=== PATIENT | female | born 1970 | race Caucasian/White ===

== ENCOUNTER → 2016-05-26 | Outpatient (CLI) | payer OTHER ==
[~2016-05-26] MED LIST: ABILIFY10 MG PO; CELEXA PO; DURAGESIC25 MCG EXT; FENTANYL1 EAC1 TD; SAVELLA50 MG PO
--- NOTE | ~2016-05-26 | CT2 ---
[facility] A Service of [facility] RADIOLOGY TEXT RESULTS PATIENT: SARAH ATKINSON LOCATION: [facility] : 66 UNIT #: [id number] AGE: [address]: Derrek Baeza MD SEX: F ORDER DR: [id number] [facility] [address] [place], [place] [address] [id number] O MR#: [id number] Acc #: [id number] NAME: SARAH ATKINSON : 1970 SEX: F STUDY DATE/TIME: 05/26/2016 12:35 UNIT: [facility] ROOM: STUDY DESCRIPTION: CT Abd and Pelv W Cont Attending Physician: Derrek Baeza M.D. Referring Physician: Derrek Baeza M.D. Ordering Physician: Derrek Baeza M.D. Primary Care Physician: No Primary Care Physician MEDICAL IMAGING REPORT This report is preliminary unless electronic signature is present EXAM CT abdomen and pelvis with contrast 05/26/2016 INDICATIONS 45-year-old female with follicular lymphoma. Observation for malignant process. TECHNIQUE CT of the abdomen and pelvis was performed following the administration of oral and IV contrast. Coronal and sagittal reformatted images were obtained. This CT exam was performed with one or more of the following radiation dose reduction techniques: automatic exposure control, adjustment of mA and/or kV according to patient size, and iterative reconstruction. COMPARISON STUDIES PET CT from 12/13/2010 FINDINGS Please see separately dictated CT of the chest for findings above the diaphragm. ABDOMEN: The liver and gallbladder are unremarkable. The spleen is normal in size. The kidneys are unremarkable. The adrenal glands are unremarkable. The pancreas is unremarkable. There is no evidence of mesenteric or retroperitoneal lymphadenopathy. PELVIS: The colon is unremarkable. The appendix is normal. There is no free fluid. There is no lymphadenopathy in the pelvis. Bone windows demonstrate no suspicious osseous lesion. IMPRESSION [facility] A Service of [facility] RADIOLOGY TEXT RESULTS PATIENT: SARAH ATKINSON [facility] [birth year] UNIT #: [id number] AGE: [address]: Derrek Baeza MD SEX: F ORDER DR: There is no lymphadenopathy in the abdomen or pelvis. Dictated by... Dimitri Wallis M.D. THIS IS AN ELECTRONICALLY VERIFIED REPORT Dimitri Walils M.D. at 05/27/2016 8:21 AM Silvio TD: 05/26/2016 17:20 JOB #: [id number] MEDICAL IMAGING REPORT Page 1 of 1 COPY
--- NOTE | ~2016-05-26 | CT55 ---
[facility] A Service of [facility] RADIOLOGY TEXT RESULTS PATIENT: SARAH ATKINSON [facility] UNIT #: [id number] AGE: [address]: Derrek Baeza MD SEX: F ORDER DR: [id number] [facility] [address] [place], [place] [address] [id number] O MR#: [id number] Acc #: [id number] NAME: SARAH ATKINSON : 1970 SEX: F STUDY DATE/TIME: 05/26/2016 12:35 UNIT: [facility] ROOM: STUDY DESCRIPTION: CT Chest W Con Attending Physician: Derrek Baeza M.D. Referring Physician: Derrek Baeza M.D. Ordering Physician: Derrek Baeza M.D. Primary Care Physician: No Primary Care Physician MEDICAL IMAGING REPORT This report is preliminary unless electronic signature is present EXAM CT of the chest with contrast. INDICATION Follicular lymphoma. Observation of a malignant process. TECHNIQUE CT scan of the chest was performed following the administration of IV contrast. Coronal and sagittal reformatted images were obtained. This CT exam was performed with one or more of the following radiation dose reduction techniques: automatic exposure control, adjustment of mA and/or kV according to patient size, and iterative reconstruction. COMPARISON STUDIES Compared with PET/CT from 01/13/2011. FINDINGS There is no axillary, mediastinal, or hilar lymphadenopathy. No pleural effusion. There are minimal emphysematous changes in the upper lobes. Calcified granuloma in the right lower lobe. Lung schmidt are otherwise clear. No pleural effusion. Please refer to separately dictated CT of the abdomen and pelvis for findings below the diaphragm. The bone windows are unremarkable. IMPRESSION There is no evidence of lymphadenopathy in the chest. Dictated by... Dimitri Wallis M.D. [facility] A Service of [facility] RADIOLOGY TEXT RESULTS PATIENT: SARAH ATKINSON LOCATION: [facility] : 66 UNIT #: [id number] AGE: [address]: Derrek Baeza MD SEX: F ORDER DR: THIS IS AN ELECTRONICALLY VERIFIED REPORT Dimitri Wallis M.D. at 05/27/2016 8:21 AM DARLEEN/francisco TD: 05/26/2016 17:09 JOB #: [id number] MEDICAL IMAGING REPORT Page 1 of 1 COPY
[2016-05-26 14:30] LABS: POC - CREATININE 0.95 mg/dL (0.44-1.03); POC - GFR >60.0 mL/min (>60)
== END | disposition home or self-care (01) ==
LOC: CCAT 11:29
PROVIDERS: Internal Medicine Hematology & Oncology
DX: C82.98 Follicular lymphoma, unspecified, lymph nodes of multiple sites (principal); M79.7 Fibromyalgia; F31.9 Bipolar disorder, unspecified
CPT/HCPCS: 71260; 74177; 82565; Q9967